=== PATIENT | female | born 1995 | race Two or more races ===

== ENCOUNTER 2021-11-21 22:59 | Observation (INO) | payer MEDICAID, OTHER ==
[~2021-11-21] VITALS: Ht 160 cm; Wt 63.5 kg
[2021-11-22] MEDS ORDERED: LACTATED RINGERS 1,000 ML IV SCH (01:00)
[2021-11-22] MEDS: TERBUTALINE SULFATE 1MG/ML VIAL SUBCUT PRN ×2 (01:12→02:55)
== END 2021-11-22 04:15 | disposition home or self-care (01) ==
LOC: 8 EST LDRP 22:59
PROVIDERS: ADMIT Specialist; ATTEND Specialist
DX: O26.853 Spotting complicating pregnancy, third trimester (principal); O26.893 Other specified pregnancy related conditions, third trimester; R10.30 Lower abdominal pain, unspecified; Z3A.30 30 weeks gestation of pregnancy
CPT/HCPCS: 59025; 76805; 96360; 96361; 96372; G0378; J3105; 99281

== ENCOUNTER 2022-01-07 08:51 | Observation (INO) | payer OTHER ==
[~2022-01-07] VITALS: Ht 165.1 cm; Wt 67.1 kg
[2022-01-07] MEDS ORDERED: PREN-55 MT (09:25)
[2022-01-07 09:59] LABS: CLARITY URINE CLEAR (CLEAR); COLOR URINE YELLOW (YELLOW); KETONES URINE NEGATIVE (NEGATIVE); LEUKOCYTE ESTERASE URINE 3+ (NEGATIVE); NITRITE URINE NEGATIVE (NEGATIVE); OCCULT BLOOD URINE TRACE (NEGATIVE); PROTEIN URINE NEGATIVE (NEGATIVE); SPECIFIC GRAVITY URINE 1.004 (1.005-1.030); UROBILINOGEN URINE 0.2 E.U./dL (0.2-1.0)
[2022-01-07] MEDS ORDERED: LACTATED RINGERS 1,000 ML IV SCH (10:30)
[2022-01-07] MEDS ORDERED: CEFAZOLIN 2,000 MG in DEXT 5% WATER 100 ML IV NR (11:30)
== END 2022-01-07 12:35 | disposition home or self-care (01) ==
LOC: 8 EST LDRP 08:51
PROVIDERS: ADMIT Obstetrics & Gynecology; ATTEND Obstetrics & Gynecology
DX: O36.8130 Decreased fetal movements, third trimester, not applicable or unspecified (principal); Z79.899 Other long term (current) drug therapy; Z3A.36 36 weeks gestation of pregnancy
CPT/HCPCS: 59025; 76815; 76818; 81003; 87086; 96365; G0378; J0690; J7060; 96360; 96361; 99281

== ENCOUNTER 2022-11-28 15:38 | Emergency (ER) | payer MEDICAID, OTHER ==
[~2022-11-28] VITALS: Ht 162.6 cm; Wt 75.0 kg
[~2022-11-28 15:38] MED LIST: PREN-55 MT
[2022-11-28 16:01] VITALS: BP 102/60
[2022-11-28] MEDS ORDERED: AMOX1TAB16 PO (18:51)
[2022-11-28] MEDS ORDERED: TOPUD PO (18:51)
== END 2022-11-28 19:15 | disposition home or self-care (01) ==
LOC: ER 15:52
DX: H66.91 Otitis media, unspecified, right ear (principal)
CPT/HCPCS: 99283